=== PATIENT | male | born 1945 | race Caucasian/White ===

== ENCOUNTER 2025-04-30 15:00 | Outpatient (RCR) | payer MEDICARE, SELFPAY | END 2025-04-30 23:59 | disposition home or self-care (01) | LOC: PT.CARL 15:00 | PROVIDERS: Visit Provider Emergency Medicine | DX: R29.6 Repeated falls (principal) | CPT/HCPCS: 97110; 97112; 97162; 97530 ==

== ENCOUNTER 2025-05-05 14:50 | Outpatient (RCR) | payer MEDICARE, SELFPAY | END 2025-05-18 12:05 | disposition home or self-care (01) | LOC: PT.CARL 14:50 | PROVIDERS: Visit Provider Emergency Medicine | DX: R29.6 Repeated falls (principal) | CPT/HCPCS: 97110; 97530 ==